=== PATIENT | male | born 1970 | race Hispanic/Latino ===

== ENCOUNTER 2017-07-22 09:43 | Outpatient (CLI) | payer OTHER ==
[2017-07-22 10:41] LABS: #Basophils 0.1 thou/uL (0.0-0.2); #Eosinphils 0.5 thou/uL (0.0-0.7); #Lymphocytes 2.3 thou/uL (1.20-3.40); #Monocytes 0.3 thou/uL (0.11-0.59); #Neutrophils 4.9 thou/uL (1.40-6.50); %Basophils 0.8 % (0.0-1.0); %Eosinophils 6.1 % (0.0-10.0); %Lymphocytes 28.5 % (21.0-51.0); %Neutrophils 60.6 % (42.0-75.0); Hemoglobin 17.9 g/dL (14.0-18.0); Mean Corpuscular HGB CONC 34.4 g/dL (32.0-36.0); Mean Corpuscular Hemoglobin 31.8 pg (27.0-31.0); Mean Corpuscular Volume 92.6 fl (80.0-94.0); Mean Platelet Volume 7.7 fL (7.4-10.4); Platelet Count 226 thou/uL (130-400); RBC Distribution Width 12.6 % (11.5-14.5); Red Blood Cell (RBC) Count 5.63 mill/uL (4.70-6.10)
[2017-07-22 10:45] LABS: Bilirubin Negative (Negative); Blood, Urine Negative (Negative); Clarity Clear (Clear); Glucose, Urine (Dipstick) Negative (Negative); Leukocyte Negative (Negative); Nitrite Negative (Negative); Protein, Urine (Dipstick) Negative (Neg-Trace); Urobilinogen 0.2 mg/dL (0.2-1.0)
[2017-07-22 10:52] LABS: Bacteria/HPF Rare-Few HPF (None Seen); RBC/HPF 0-3 HPF (0-3); Squamous Epithelial 0-3 HPF (0-3); WBC/HPF 0-3 HPF (0-3)
[2017-07-22 11:20] LABS: ALT (SGPT) 41 U/L (8-55); AST (SGOT) 20 U/L (5-34); Albumin 4.5 g/dL (3.5-5.0); Alkaline Phosphatase 67 U/L (40-150); Anion Gap 16 mmol/L (10-20); BUN (Urea Nitrogen) 15 mg/dL (8.9-20.6); Bilirubin, Total 1.8 mg/dL (0.2-1.2); Calc. Creatinine Clearance 0 mL/min (70-130); Calcium 9.4 mg/dL (7.8-10.44); Carbon Dioxide 22 mmol/L (22-29); Chloride 105 mmol/L (98-107); Cholesterol 232 mg/dl (< 200 Desired); Estimated GFR-MDRD Greater than 90; Globulin 2.5 g/dL (2.4-3.5); Glucose 98 mg/dL (70-105); HDL Cholesterol 46 mg/dL (>60 Neg Risk); LDL Cholesterol, Calculated 154 mg/dL; Magnesium 2.2 mg/dL (1.6-2.6); Potassium 4.7 mmol/L (3.5-5.1); Sodium 138 mmol/L (136-145); Triglycerides 159 mg/dL (Less than 150)
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
== END 2017-07-22 09:44 | disposition home or self-care (01) ==
LOC: MADLABBHPM 09:43
PROVIDERS: ATTEND Family Medicine
DX: M79.604 Pain in right leg (principal); R25.2 Cramp and spasm; I10 Essential (primary) hypertension; E66.3 Overweight; M79.5 Residual foreign body in soft tissue
CPT/HCPCS: 36415; 80053; 80061; 81001; 83735; 84443; 85025

== ENCOUNTER 2017-12-02 14:01 | Emergency (ER) | payer OTHER ==
[2017-12-02 14:12] LABS: #Basophils 0.1 thou/uL (0.0-0.2); #Eosinphils 0.5 thou/uL (0.0-0.7); #Lymphocytes 2.9 thou/uL (1.20-3.40); #Monocytes 0.3 thou/uL (0.11-0.59); #Neutrophils 6.4 thou/uL (1.40-6.50); %Basophils 0.6 % (0.0-1.0); %Lymphocytes 28.2 % (21.0-51.0); %Monocytes 2.9 % (0.0-10.0); %Neutrophils 63.3 % (42.0-75.0); Hemoglobin 17.4 g/dL (14.0-18.0); Mean Corpuscular HGB CONC 34.1 g/dL (32.0-36.0); Mean Corpuscular Hemoglobin 30.9 pg (27.0-31.0); Mean Corpuscular Volume 90.6 fL (78.0-98.0); Platelet Count 231 thou/uL (130-400); RBC Distribution Width 12.1 % (11.5-14.5); Red Blood Cell (RBC) Count 5.64 mill/uL (4.70-6.10); White Blood Cell (WBC) Count 10.2 thou/uL (4.8-10.8)
[2017-12-02] MEDS ORDERED: Acetaminophen 500 MG TAB ONE (14:28)
[2017-12-02] MEDS ORDERED: Ketorolac Tromethamine 30 MG/ML VIAL ONE (14:28)
[2017-12-02 14:32] LABS: ALT (SGPT) 33 U/L (8-55); AST (SGOT) 19 U/L (5-34); Albumin 4.7 g/dL (3.5-5.0); Alkaline Phosphatase 67 U/L (40-150); Anion Gap 17 mmol/L (10-20); BUN (Urea Nitrogen) 14 mg/dL (8.9-20.6); Bilirubin, Total 1.8 mg/dL (0.2-1.2); CK (CPK) 189 U/L (30-200); Calc. Creatinine Clearance 0 mL/min (70-130); Calcium 9.7 mg/dL (7.8-10.44); Carbon Dioxide 24 mmol/L (22-29); Chloride 104 mmol/L (98-107); Estimated GFR-MDRD 87; Globulin 2.7 g/dL (2.4-3.5); Glucose 122 mg/dL (70-105); Potassium 3.6 mmol/L (3.5-5.1); Protein, Total 7.4 g/dL (6.0-8.3); Sodium 141 mmol/L (136-145)
[2017-12-02 14:33] LABS: CKMB 4.8 ng/mL (0-6.6); Troponin I Less than 0.010 ng/mL (< 0.028)
--- NOTE | 2017-12-02 14:42 | RAD ---
PORTABLE CHEST: Date: 12-02-17 Provided Clinical History: Chest pain. FINDINGS: Comparison 04-24-14. Evaluation is limited by patient body habitus. Lungs are hypoinflated. Cardiac and mediastinal silhou ette is within normal limits. No focal consolidation, pleural fluid or pneumothorax apparent. IMPRESSION: Hypoinflated lungs. POS: [facility]
[2017-12-02] MEDS ORDERED: Morphine 4 MG/ML VIAL ONE ×2 (15:12→17:18)
[2017-12-02] MEDS ORDERED: Mag-Al Plus 1200 MG/1200 MG/120 MG/30 ML UDCUP ONE (17:18)
[2017-12-02] MEDS ORDERED: Lidocaine Viscous Sol 2% 15 ml UD Cup ONE (17:18)
== END 2017-12-02 18:03 | disposition home or self-care (01) ==
LOC: MADERS 14:01
DX: I10 Essential (primary) hypertension (principal); R07.89 Other chest pain; F17.210 Nicotine dependence, cigarettes, uncomplicated
CPT/HCPCS: 36415; 71045; 80053; 82553; 83880; 84484; 85025; 85379; 93005; 94760; 96374; 96375; 96376; J1885; J2270

== ENCOUNTER 2018-09-29 07:33 | Emergency (ER) | payer OTHER ==
[2018-09-29] MEDS ORDERED: Ketorolac Tromethamine 30 MG/ML VIAL ONE (08:19)
[2018-09-29] MEDS ORDERED: Ondansetron ODT 4 MG TAB ONE (08:19)
[2018-09-29 08:58] LABS: Hemoglobin 17.3 g/dL (14.0-18.0); Mean Corpuscular HGB CONC 32.4 g/dL (32.0-36.0); Mean Corpuscular Hemoglobin 30.5 pg (27.0-31.0); Mean Platelet Volume 7.5 fL (7.4-10.4); Platelet Count 218 thou/uL (130-400); RBC Distribution Width 12.4 % (11.5-14.5); Red Blood Cell (RBC) Count 5.66 mill/uL (4.70-6.10); White Blood Cell (WBC) Count 11.2 thou/uL (4.8-10.8)
[2018-09-29 09:08] LABS: ALT (SGPT) 39 U/L (8-55); AST (SGOT) 27 U/L (5-34); Albumin 4.8 g/dL (3.5-5.0); Alkaline Phosphatase 84 U/L (40-150); Anion Gap 14 mmol/L (10-20); BUN (Urea Nitrogen) 23 mg/dL (8.9-20.6); Bilirubin, Total 2.6 mg/dL (0.2-1.2); Calc. Creatinine Clearance 0 mL/min (70-130); Calcium 8.9 mg/dL (7.8-10.44); Carbon Dioxide 25 mmol/L (22-29); Chloride 104 mmol/L (98-107); Estimated GFR-MDRD 74; Globulin 2.9 g/dL (2.4-3.5); Glucose 102 mg/dL (70-105); Potassium 4.1 mmol/L (3.5-5.1); Protein, Total 7.7 g/dL (6.0-8.3); Sodium 139 mmol/L (136-145)
[2018-09-29 09:12] LABS: Band 2 % (5-11); Lymphocytes 14 % (21-51); MDiff Complete? YES; Monocytes 2 % (0-10); Neutrophil 82 % (42-75); Platelet Morphology Comment Appears Adequate; Poikilocytosis SLIGHT = 6-15 cells (100X) (0-5/hpf)
[2018-09-29] MEDS ORDERED: Sodium Chloride 0.9% 1,000 ML BAG ONE (10:58)
== END 2018-09-29 09:55 | disposition home or self-care (01) ==
LOC: MADERS 07:33
DX: R51 Headache (principal); R11.2 Nausea with vomiting, unspecified; M79.10 Myalgia, unspecified site; Z71.6 Tobacco abuse counseling; F17.210 Nicotine dependence, cigarettes, uncomplicated
CPT/HCPCS: 80053; 85025; 96361; 96374; 99406; J1885; J7050; Q0162

== ENCOUNTER 2018-12-01 08:28 | Emergency (ER) | payer OTHER ==
[2018-12-01] MEDS ORDERED: Magnesium Citrate 300 ML BOT ONE (08:50)
[2018-12-01] MEDS ORDERED: cloNIDine 0.1 MG TAB ONE (08:50)
--- NOTE | 2018-12-01 08:58 | RAD ---
EXAM: Chest PA and lateral: HISTORY: Hypertension COMPARISON: 12/02/2017 FINDINGS: Heart: Normal cardiac silhouette Aorta: Unremarkable Pulmonary vessels: Normal Costophrenic angles: Costophrenic angles are clear. Lungs: No consolidation or masses. Pneumothorax: No pneumothorax Osseous structures: No osseous abnormalities IMPRESSION: No acute cardiopulmonary process.
[2018-12-01 09:11] LABS: #Basophils 0.1 thou/uL (0.0-0.2); #Eosinphils 0.4 thou/uL (0.0-0.7); #Lymphocytes 2.1 thou/uL (1.20-3.40); #Monocytes 0.5 thou/uL (0.11-0.59); #Neutrophils 6.6 thou/uL (1.40-6.50); %Basophils 0.8 % (0.0-1.0); %Eosinophils 3.7 % (0.0-10.0); %Lymphocytes 21.5 % (21.0-51.0); %Monocytes 5.6 % (0.0-10.0); %Neutrophils 68.3 % (42.0-75.0); Hemoglobin 17.3 g/dL (14.0-18.0); Mean Corpuscular HGB CONC 33.3 g/dL (32.0-36.0); Mean Corpuscular Hemoglobin 30.5 pg (27.0-31.0); Mean Corpuscular Volume 91.6 fL (78.0-98.0); Mean Platelet Volume 7.5 fL (7.4-10.4); Platelet Count 226 thou/uL (130-400); Red Blood Cell (RBC) Count 5.66 mill/uL (4.70-6.10); White Blood Cell (WBC) Count 9.7 thou/uL (4.8-10.8)
[2018-12-01 09:30] LABS: ALT (SGPT) 39 U/L (8-55); AST (SGOT) 24 U/L (5-34); Albumin 4.7 g/dL (3.5-5.0); Alkaline Phosphatase 66 U/L (40-150); Anion Gap 14 mmol/L (10-20); BUN (Urea Nitrogen) 11 mg/dL (8.9-20.6); Bilirubin, Total 1.6 mg/dL (0.2-1.2); Calc. Creatinine Clearance 0 mL/min (70-130); Calcium 9.5 mg/dL (7.8-10.44); Carbon Dioxide 24 mmol/L (22-29); Chloride 105 mmol/L (98-107); Estimated GFR-MDRD 80; Globulin 2.7 g/dL (2.4-3.5); Glucose 90 mg/dL (70-105); Potassium 3.9 mmol/L (3.5-5.1); Protein, Total 7.4 g/dL (6.0-8.3); Sodium 139 mmol/L (136-145)
[2018-12-01 09:37] LABS: Bilirubin Negative (Negative); Blood, Urine Negative (Negative); Clarity Clear (Clear); Glucose, Urine (Dipstick) Negative (Negative); Leukocyte Negative (Negative); Nitrite Negative (Negative); Protein, Urine (Dipstick) Negative (Neg-Trace); Urobilinogen 0.2 mg/dL (Less than 2)
[2018-12-01 09:43] LABS: Amphetamine Detected (NotDetected); Cocaine Metabolite Screen Detected (NotDetected)
[2018-12-01 09:44] LABS: Barbiturates Screen Not Detected (NotDetected); Benzodiazepine Screen Not Detected (NotDetected); Medtox Control Line Valid? VALID (VALID); Methadone Not Detected (NotDetected); Methamphetamine Detected (NotDetected); Opiate Screen Not Detected (NotDetected); Oxycodone Screen Not Detected (NotDetected); Phencyclidine (PCP) Not Detected (NotDetected); THC/Cannabinoid Screen Not Detected (NotDetected); Tricyclic Screen Not Detected (NotDetected)
== END 2018-12-01 10:06 | disposition home or self-care (01) ==
LOC: MADERS 08:28
DX: I10 Essential (primary) hypertension (principal); F14.10 Cocaine abuse, uncomplicated; F15.10 Other stimulant abuse, uncomplicated; F17.210 Nicotine dependence, cigarettes, uncomplicated
CPT/HCPCS: 36415; 71046; 80053; 80306; 81003; 83880; 84484; 85025; 93005; 94760

== ENCOUNTER 2020-08-07 19:06 | Emergency (ER) | payer OTHER | END 2020-08-07 21:06 | disposition home or self-care (01) | LOC: MADERS 19:06 | DX: S39.011A Strain of muscle, fascia and tendon of abdomen, initial encounter (principal); F17.210 Nicotine dependence, cigarettes, uncomplicated; I10 Essential (primary) hypertension; X50.9XXA Other and unspecified overexertion or strenuous movements or postures, initial encounter | CPT/HCPCS: 99283 ==

== ENCOUNTER 2023-06-09 03:14 | Emergency (ER) | payer OTHER ==
[2023-06-09] MEDS ORDERED: diphenhydrAMINE 50 MG/ML VIAL ONE (03:35)
[2023-06-09] MEDS ORDERED: Ketorolac Tromethamine 30 MG (1 mL) VIAL ONE (03:35)
[2023-06-09] MEDS ORDERED: Dexamethasone 10 MG/ML VIAL ONE (03:35)
[2023-06-09 03:56] LABS: Troponin I Less than 0.010 ng/mL (< 0.028)
== END 2023-06-09 05:04 | disposition short-term general hospital (02) ==
LOC: MADERS 03:14
DX: F15.980 Other stimulant use, unspecified with stimulant-induced anxiety disorder (principal); F19.239 Other psychoactive substance dependence with withdrawal, unspecified; I10 Essential (primary) hypertension; F17.210 Nicotine dependence, cigarettes, uncomplicated
CPT/HCPCS: 71045; 84484; 93005; 96374; 96375; J1100; J1200; J1885